=== PATIENT | male | born 1975 | race African-American/Black ===

== ENCOUNTER 2022-06-01 01:04 | Emergency (ER) | payer BC, OTHER | END 2022-06-01 01:28 | disposition home or self-care (01) | LOC: NAV ERS 01:04 | DX: E11.65 Type 2 diabetes mellitus with hyperglycemia (principal); Z79.4 Long term (current) use of insulin; E78.2 Mixed hyperlipidemia; I10 Essential (primary) hypertension; F17.210 Nicotine dependence, cigarettes, uncomplicated | CPT/HCPCS: 36416; 99283 ==